=== PATIENT | female | born 1960 ===

== ENCOUNTER 2025-07-03 07:00 | Day surgery (SDC) | payer OTHER ==
[2025-06-27 13:09] VITALS: BP 113/74
[~2025-07-03] VITALS: Ht 165.1 cm; Wt 72.6 kg
[~2025-07-03 07:00] MED LIST: DICYCLOMINE HCL20 MG PO; EZALLOR SPRINKL20 MG PO; FENOFIBRATE50 MG; IBANDRONATE SO150 MG; METFORMIN HCL500 M3 PO; PEPCID AC20 MG; PROAIR RESPICL90 MCG IH; SINGULAIR10 MG PO
[2025-07-03] MEDS ORDERED: CEFAZOLIN SODIUM 1,000 MG VIAL IV ONE (09:45)
[2025-07-03] MEDS ORDERED: GENTAMICIN SULFATE 40 MG/ML VIAL IJ ONE (09:45)
[2025-07-03] MEDS ORDERED: MACROBID 100 M100 MG PO (12:14)
[2025-07-03] MEDS ORDERED: TRAM1TAB98 PO (12:14)
== END 2025-07-03 14:05 | disposition home or self-care (01) ==
LOC: CIR.AMB 07:00
PROVIDERS: ATTEND Obstetrics & Gynecology Gynecology
DX: N81.11 Cystocele, midline (principal)